=== PATIENT | female | born 1985 | race American Indian/Alaskan Native ===

== ENCOUNTER 2017-11-02 12:30 | Emergency (ER) | payer OTHER ==
--- NOTE | 2017-11-02 13:18 | OBHP ---
Datetime: 11/02/2017 13:12 IP Adm Impression: , intrauterine ; No Active Labor; Intact Membranes IP Admit Plan: Observation/Evaluation; Discharge home Admit Comment, IP Provider: The patient presents to labor and delivery at 35 weeks complaining of pe lvic pressure discomfort times several hours duration. Patient reports good movement no vaginal bleeding or leakage of fluid. care unremarkable Past medical history none Past surgical history none No known drug allergies Social history denies alcohol tobacco use Review of systems patient denies headache chest pain shortness of breath palpitations nausea vomit ing diarrhea heat or cold intolerance easy bruisability musculoskeletal or neurological complaints Vital signs stable afebrile Physical exam see notes Intrauterine at 35 weeks Observation, external monitor Pelvic Type - PN: Adequate Extremities - PN: Normal Abdomen - PN: Normal Back - PN: Normal Breast - PN: Not Done Lungs - PN: Normal Heart - PN: Normal Thyroid - PN: Normal Neurologic - PN: Normal HEENT - PN: Normal General - PN: Normal Presentation-Admit: Vertex FHR - Baseline A Provider: 145 Gestation - Est Wks by US: 35.0 Pool Provider: Negative Vital Signs Provider: Reviewed IP Chief Complaint: Maternal discomfort NICHD Variability Prov Fetus A: Moderate 6-25bpm NICHD Accel Fetus A IP Provider: 10X10 FHR Category Provider Fetus A: Category I NICHD Decel Fetus A IP Provider: None Dilatation, Provider: 0 Effacement, Provider: 0 Station, Provider: 0 Genitourinary Exam: Normal DTRs - PN: Normal
[2017-11-02 19:07] VITALS: BP 110/68; PULSE 89; O2SAT 100
== END 2017-11-02 15:06 | disposition home or self-care (01) ==
LOC: H.EROB2 12:30 → H.L&D 12:34 → H.EROB2 15:06
DX: O26.93 Pregnancy related conditions, unspecified, third trimester (principal); R10.2 Pelvic and perineal pain; Z3A.35 35 weeks gestation of pregnancy

== ENCOUNTER 2017-12-10 19:38 | Inpatient (IN) | payer OTHER ==
[2017-12-10] MEDS: Lactated Ringer's 1,000 ML IV SCH (20:35)
[2017-12-10 20:43] VITALS: BMI 35.6
--- NOTE | 2017-12-10 21:00 | OBADHP ---
Datetime: 12/10/2017 20:34 Admit Comment, IP Provider: 32 y/o G1 @ 40.4 wks w/ EDC 12/06/2017 based on LMP (03/01/2017) present ing for scheduled induction for oligohydramnios. She has not had an complications thus far, and state s she had a bloody show while in the office today with irregular contractions. She denied any loss of fluid. Denies fever, chills, chest pain, shortness of breath, dysuria or calf pain. Pt receives her PN care w/ Dr. Alonso. PMH: none Meds: None (not on PNV due to elevated iron levels as per patient) Allergies: mushrooms-hives Famhx: mother- DM, HTN; father- unknown Surghx: tonsillectomy Sochx: denies cigarettes, eToH or elicit drugs ROS: all other systems reviewed _ negative VS: 109/68 spo2-99% RR-16 Pulse -102bpm Gen: laying supine position, in no distress, breathing comfortably Cardio: s1s2 RRR, no mumurs Resp: cta b/l no wheeze Abd: Gravid, BS +, nontender Pelvic: 1cm, 20%, -3 (Nurse Yuki as airport location manager) Ext: nonedematous, calves nontender Neuro: A _ O x 3 A/P: 32 y/o G1PO @ 40.4 wks based on LMP (03/01/2017) presenting for scheduled induction for oligo hydramnios. 1. Admit to unit _ initiate induction protocol with cervidil. 2. Continue to monitor. 3. Cbc _ type/screen ordered. FU results. Patient seen and examined with MAKENZIE Temple JP, PGY-1 OB Hospitalist Addendum: Pt seen and examined by me. Agree w/ above. 32 yo G1 at 40+4 wks for in duction of labor for oligohydramnios. Will start induction w/ cervidil. FHT reactive. GBS negative. (ES) FHR - Baseline A Provider: 140 Membranes, Provider: Intact Gestation - Est Wks by US: 40.4 IP Hx Assessment: The History has been Reviewed and is Current Vital Signs Provider: Reviewed IP Chief Complaint: Uterine contractions; Scheduled induction of labor NICHD Variability Prov Fetus A: Moderate 6-25bpm NICHD Accel Fetus A IP Provider: 15X15 FHR Category Provider Fetus A: Category I NICHD Decel Fetus A IP Provider: None Dilatation, Provider: 1 Effacement, Provider: 0 Station, Provider: -3 EGA AdmitDate IP: 40.4 IP Admit Plan: Admit to unit; Initiate labor induction protocol Datetime: 11/02/2017 13:12 Pelvic Type - PN: Adequate Extremities - PN: Normal Abdomen - PN: Normal Back - PN: Normal Breast - PN: Not Done Lungs - PN: Normal Heart - PN: Normal Thyroid - PN: Normal Neurologic - PN: Normal HEENT - PN: Normal General - PN: Normal Presentation-Admit: Vertex Pool Provider: Negative Genitourinary Exam: Normal DTRs - PN: Normal IP Adm Impression: , intrauterine ; No Active Labor; Intact Membranes
[2017-12-10 21:31] LABS: BASO % 0.3 % (0.0-2.0); EOS # 0.1 K/uL (0.0-0.7); EOS % 0.9 % (0.0-4.0); HEMOGLOBIN 10.6 g/dL (12.0-16.0); LYMPH # 1.7 K/uL (1.0-4.3); LYMPH % 11.1 % (20.0-40.0); MEAN CELL VOLUME 80.1 fl (81.0-99.0); MEAN CORPUSCULAR HEMOGLOBIN 25.7 pg (27.0-31.0); MONO # 1.2 K/uL (0.0-0.8); MONO % 7.4 % (0.0-10.0); NEUT # 12.5 K/uL (1.8-7.0); NEUT % 80.3 % (50.0-75.0); RBC 4.13 Mil/uL (3.80-5.20); RED CELL DISTRIBUTION WIDTH 16.7 % (11.5-14.5); WHITE BLOOD COUNT 15.6 K/uL (4.8-10.8)
[2017-12-11] MEDS: Lactated Ringer's 1,000 ML IV SCH ×3 (07:20→18:30)
[2017-12-11] MEDS ORDERED: OXYTOCIN/0.9 % NS 20 UNIT/1,000 ML BAG IV ONE ×2 (12:21→21:12)
[2017-12-11] MEDS ORDERED: Oxytocin 30 UNIT 30 UNITS/500 ML BAG IV ONE ×2 (12:22→21:12)
[2017-12-11] MEDS ORDERED: Fentanyl/Bupivacaine HCl 250 ML EPI ONE (17:28)
--- NOTE | 2017-12-11 18:31 | OBPN ---
Datetime: 12/11/2017 12:10 IP Progress Note Comment: OB Hospitalist on-call. Sign out rec'd 11:30am. Melinda was admitited for IOL started on cervidil. With FHR tracing showi ng occ decels (baseline 140 - 150's). SVE 1cm she had balloon placed in cervix - placed on tension. ..will motnior progress/cervical ripening Addenedum : +LYV + Accels Datetime: 12/11/2017 12:00 IP Progress Plan: Continue present management; Cervical Ripening Contraction Comments Provider: Sporadic FHR - Baseline A Provider: 150 Gestation - Est Wks by US: 40.5 Vital Signs Provider: Reviewed; Within Normal Limits FHR Category Provider Fetus A: Category II NICHD Variability Prov Fetus A: Minimal - Undetectable to <5bpm Dilatation, Provider: 1 Effacement, Provider: 30 Station, Provider: -3 NICHD Decel Fetus A IP Provider: Late; Variable Datetime: 12/10/2017 20:34 Membranes, Provider: Intact NICHD Accel Fetus A IP Provider: 15X15 Datetime: 11/02/2017 13:12 Pool Provider: Negative Presentation-Admit: Vertex
[2017-12-11] MEDS ORDERED: Lactated Ringer's 1,000 ML IV SCH (19:00)
--- NOTE | 2017-12-11 19:01 | OBPN ---
Datetime: 12/11/2017 18:45 IP Progress Impression: Normal progression of labor; Reassuring heart rate IP Procedures: Artificial ROM IP Progress Plan: Continue present management Pool Provider: Negative Membranes, Provider: Ruptured Contraction Comments Provider: 2-3m FHR - Baseline A Provider: 150 Presentation-Admit: Vertex IP Progress Note Comment: Earlier, she rec'd epidural for pain. She had balloon placed SVE balloon in vagina/with bloody show noted - SVE 3-4/50/-2 AROM attempted - scant fluid noted A: Latent phase of labor PLAN: monitor FH and labor progress - balloon removed. NICHD Accel Fetus A IP Provider: 10X10 FHR Category Provider Fetus A: Category II NICHD Variability Prov Fetus A: Minimal - Undetectable to <5bpm Dilatation, Provider: 3-4 Effacement, Provider: 50 Station, Provider: -2 NICHD Decel Fetus A IP Provider: None
[2017-12-11] MEDS ORDERED: ceFAZolin 2 GM in Sodium Chloride 0.9% 100 ML IVPB ONE (19:19)
[2017-12-11] MEDS ORDERED: ceFAZolin IV 1 gm in Dextrose 2 GM/100 ML BAG IVPB ONE (19:19)
--- NOTE | 2017-12-11 19:21 | OBPN ---
Datetime: 12/11/2017 19:10 IP Progress Impression Other: decelerations rmote from delivery IP Informed Consent Obtain: Section Delivery; Risks, Benefits and Alternatives Discussed IP Progress Plan: Deliver- Section IP Progress Note Comment: Notiified decels/decreased LTV after AROM .... A: decelerations remote from delivery. PLAN: Condition/procedure explained to pt . she and her p artner understood. Prep for C/S ...informed consent obtained Datetime: 12/11/2017 16:30 IP Procedures: Sterile Vag Exam Contraction Comments Provider: Q3-5 minutes FHR - Baseline A Provider: 140 Gestation - Est Wks by US: 40.5 Vital Signs Provider: Reviewed; Within Normal Limits FHR Category Provider Fetus A: Category II NICHD Variability Prov Fetus A: Minimal - Undetectable to <5bpm Dilatation, Provider: 3 Effacement, Provider: 40 Station, Provider: -3
[2017-12-11] MEDS ORDERED: EPINEPHrine 1 mg/ml (1:1000) Inj ONE (19:42)
[2017-12-11] MEDS ORDERED: Lidocaine 2% PF (10 ml) Amp ONE (19:42)
[2017-12-11] MEDS: ceFAZolin IV 1 gm in Dextrose 2 GM/100 ML BAG IVPB ONE ×2 (19:50→20:00)
[2017-12-11] MEDS ORDERED: Morphine 1 mg/ml preservative-free Inj(Duramorph) ONE (20:05)
[2017-12-11] MEDS ORDERED: DiphenhydrAMINE 50 mg/ml Inj ONE (20:52)
[2017-12-11] MEDS ORDERED: Oxycodone/Acetaminophen 5/325 mg Tab PO PRN (21:12)
[2017-12-11] MEDS ORDERED: DiphenhydrAMINE 50 mg/ml Inj IVP PRN (21:30)
[2017-12-12] MEDS ORDERED: DiphenhydrAMINE 50 mg/ml Inj IVP PRN (00:30)
[2017-12-12] MEDS ORDERED: Lactated Ringer's 1,000 ML IV SCH (05:15)
[2017-12-12 06:34] LABS: HEMOGLOBIN 9.7 g/dL (12.0-16.0); MEAN CELL VOLUME 82.3 fl (81.0-99.0); MEAN CORPUSCULAR HEMOGLOBIN 26.1 pg (27.0-31.0); MEAN CORPUSCULAR HGB CONC 31.8 g/dL (33.0-37.0); RBC 3.71 Mil/uL (3.80-5.20); WHITE BLOOD COUNT 20.9 K/uL (4.8-10.8)
--- NOTE | 2017-12-12 08:07 | OBDS ---
DELIVERY PERSONNEL Delivery Doctor: Suni Helm DO Assembly Line Machine Operator: Alea Yip RN Anesthesiologist: Mahesh Garcia MD Resident: Ed Forrester MATERNAL INFORMATION Delivery Anesthesia: Epidural Medications in Delivery: Pitocin Estimated Blood Loss (ml): 800 Placenta Cultured: No Maternal Complications: None Provider Comments: Pre op Dx deceleratoins remote from delivery Post op Dx same Procedure: Primary LTCS via Pfannensteil incision Surgeon Dr Alicja De La Cruz Assron Forrester Anesth: Dr Garcia Anesth: epidural Findings: live infant female delivered from presentation/asynclitic/loose cord around neck/ No AF - 9,9 -Placenta delivered intact manually -ovaries and tubes WNL/ small fibroid posterior wall -she remained stable -all equipment sponges accounted for -EBL 800cc LABOR SUMMARY EDC: 12/06/2017 00:00 No. Babies in Womb: 1 Attempted: No Labor Anesthesia: Epidural LABOR INFORMATION Reason for Induction: Oligohydramnios Onset of Labor: 12/11/2017 17:30 Cervical Ripening Agents: Cervidil; Maurice Balloon Oxytocin: N/A Group B Beta Strep: Negative Antibiotics # of Doses: none Antibiotics Time of Last Dose: n/a Steroids Given: None Reason Steroids Not Administered: Not Applicable MEMBRANES Membranes Rupture Method: Artificial Rupture of Membranes: 12/11/2017 18:45 Length of Rupture (hrs): 1.60 Amniotic Fluid Color: Bloody Amniotic Fluid Amount: Scant Amniotic Fluid Odor: None STAGES OF LABOR Stage 3 hrs: 0 Stage 3 min: 0 Total Time in Labor hrs: 2 Total Time in Labor min: 51 CSECTION DELIVERY Primary Indication: Other Other Primary Indication: decelerations remote from delivery CSection Urgency: Non Elective CSection Incidence: Primary Labor: Labor Elective: Nonelective CSection Incision: Lower Uterine Transverse Uterine Closure: Double-layer closure (Annotations: Data stored by N on behalf of user) BABY A INFORMATION Infant Delivery Date/Time: 12/11/2017 20:21 Method of Delivery: Born in Route : No : N/A Forceps: N/A Vacuum Extraction: N/A Shoulder Dystocia : No SHOULDER DYSTOCIA BABY A Infant Delivery Date/Time: 12/11/2017 20:21 PRESENTATION/POSITION BABY A Presentation: Cephalic Cephalic Presentation: Vertex PLACENTA INFORMATION BABY A Placenta Delivery Time : 12/11/2017 20:21 Placenta Method of Delivery: Expressed Placenta Status: Delivered SCORES BABY A Heart Rate 1 min: >100 bpm Resp Effort 1 min: Good Cry Reflex Irritability 1 min: Cough or Sneeze or Pulls Away Muscle Tone 1 min: Active Motion Color 1 min: Body [place], Extremities Blue Resuscitation Effort 1 min: Tactile Stimulation SCORE 1 MIN: 9 Heart Rate 5 min: >100 bpm Resp Effort 5 min: Good Cry Reflex Irritability 5 min: Cough or Sneeze or Pulls Away Muscle Tone 5 min: Active Motion Color 5 min: Body [place], Extremities Blue Resuscitation Effort 5 min: N/A SCORE 5 MIN: 9 INFANT INFORMATION BABY A Gestational Age at Delivery: 40.5 Gestational Status: Term Outcome : Liveborn Infant Condition : Stable Sex: Female IDENTIFICATION/MEDS BABY A ID Band Number: [id number] ID Band Location: Left Leg; Left Arm WEIGHT/LENGTH BABY A Infant Birthweight (gms): 2900 Weight (lb): 6 Infant Weight (oz): 6 CORD INFORMATION BABY A No. Cord Vessels: 3 Nuchal Cord : Around Neck x1, Loose Infant Cord pH Baby Arterial: 7.18 Cord Blood Taken: Yes Infant Suction: Mouth; Nose; Pharynx ASSESSMENT BABY A Infant Complications: Multiple Late Decels; Oligohydramnios Physical Findings at Delivery: Molding of the Head Infant Respirations: Appears Normal Upfitter/ALS Called : No Infant Care By: Dr Collado/Hai Transferred To: Remains with Mother
[2017-12-12] MEDS ORDERED: Multivitamin With Minerals Tab PO SCH (09:00)
[2017-12-12] MEDS: Multivitamin With Minerals Tab PO SCH (09:03)
[2017-12-12] MEDS: Oxycodone/Acetaminophen 5/325 mg Tab PO PRN ×2 (09:15→15:00)
--- NOTE | 2017-12-12 18:51 | OBPPN ---
Datetime: 12/12/2017 18:47 PP Pain Prov: Within normal limits PP Nausea Prov: Denies PP Flatus Prov: Yes PP Breasts Prov: Not Done PP Heart Prov: Normal PP Lungs Prov: Normal PP Abdomen/Uterus Prov: Normal PP Lochia Prov: Not Done PP Vulva/Perineum Prov: Not Done PP CVA Tenderness Prov: Normal PP Extremities Prov: Normal PP C/S Incision Prov: Normal PP Impression Prov: Normal progression PP Plan Prov: Continue present management PP Progress Note Prov: Patient doing well tolerating diet pain well-controlled ambulating and voidin g without difficulty Vital signs stable afebrile Uterus firm below the umbilicus Incision clean dry and intact Extremities no Homans day #1 Ambulate, regular diet, analgesias needed CBC within normal limits Vital Signs Provider PP: Reviewed
--- NOTE | 2017-12-13 08:24 | OP ---
PROCEDURE DATE: 12/11/2017 PREOPERATIVE DIAGNOSIS: Decelerations remote from delivery and early labor. POSTOPERATIVE DIAGNOSIS: Decelerations remote from delivery and early labor. PROCEDURE: Primary low transverse section via Pfannenstiel incision. SURGEON: Phani Helm DO SERVICE LOSS CONTROL CONSULTANT: Km De La Cruz MD ANESTHESIOLOGIST: Odell Garcia MD ANESTHESIA: Epidural. OPERATIVE FINDINGS: Live female infant, delivered from the cephalic presentation, noted to be asynclitic. Loose nuchal cord around the neck. No amniotic fluid noted. scores were 9 and 9 given 1 and 5 minutes respectively. Placenta was delivered and intact manually. Ovaries and tubes appeared to be within normal limits grossly. A small fibroid noted in the posterior wall. She remained hemodynamically stable throughout the procedure. All equipments, sponges and needles accounted for. ESTIMATED BLOOD LOSS: 800 mL. DESCRIPTION OF PROCEDURE: The patient was brought to the operating room. She already had an epidural catheter in place. She also had a Maurice catheter in place. Compression boots were placed on both lower extremities. She was placed in supine position. heart rate was noted to be 160s prior to draping. She was draped and prepped in the usual sterile manner. Once adequate anesthesia was obtained, a Pfannenstiel incision was made using a scalpel. This incision was then taken down to the underlying fascia using a second scalpel. The fascia was nicked in the midline and extended bilaterally using Churhc scissors. The inferior aspect of the fascia was grasped using two Raj clamps, tented up, and the rectus muscle was both bluntly and sharply dissected using electrocautery. Same was done with superior aspect of the fascia. In the midline superiorly, the rectus muscle was bluntly. Peritoneum was identified, tented up using two Ninoska clamps and incised using Metzenbaum scissors with direct visualization of bladder and intestines. The incision was then extended superiorly and inferiorly. Thereafter, bladder blade was inserted. Bladder flap was created by incising peritoneum on the uterus using Metzenbaum scissors and then extending it bilaterally. Afterwards, bladder blade was then inserted behind the bladder flap. A low transverse incision was made using a scalpel. Upon entering the uterus, no amniotic fluid was noted. This incision was then extended bilaterally using bandage scissors. The 's head was delivered as atraumatically as possible. One loose nuchal cord was noted. This was reduced successfully. Remainder of the infant was then delivered as traumatically as possible. Infant was bulb suctioned nasopharyngeally and the was crying spontaneously. Cord was clamped and cut, and the infant was handed to senior licensing manager in attendance. Cord blood and cord pH were obtained. Placenta was then delivered intact manually. The uterus was then exteriorized, cleared of debris and clots. Good contracture of the uterus was noted. A 0 Vicryl suture was used to close the first layer of the uterus in interlocking fashion. Second layer of the uterus was closed using 0 Vicryl suture imbricating the first layer, good hemostasis being assured. Posterior cul-de-sac was noted to be cleared of debris and clots. Irrigation was performed. Uterus was then placed back into the peritoneal cavity. Incision line was reinspected down the lower uterine aspect and noted to have good hemostasis. All equipments were removed and accounted for. A 0 Vicryl suture was used to approximate the peritoneum in a running fashion. The rectus muscle was noted to have good hemostasis. A 0 Vicryl suture was used to approximate the rectus muscle x3. A 0 Vicryl suture was used to approximate the fascial layer in a running fashion. Hemostasis was assured using electrocautery in the subcuticular layer. A 2-0 plain suture was used to approximate the subcuticular layer x3, 3-0 Vicryl suture was used to approximate the skin. Dermabond, Steri-Strips and pressure bandage were applied. She tolerated the procedure well and was transferred to the recovery room in stable condition, remained hemodynamically stable. Phani Helm DO
[2017-12-13] MEDS: Multivitamin With Minerals Tab PO SCH (08:32)
--- NOTE | 2017-12-13 22:20 | OBPPN ---
Datetime: 12/13/2017 10:16 PP Pain Prov: Within normal limits PP Nausea Prov: Denies PP Flatus Prov: Yes PP BM Prov: Yes PP Breasts Prov: Normal PP Heart Prov: Normal PP Lungs Prov: Normal PP Abdomen/Uterus Prov: Normal PP Lochia Prov: Normal PP Vulva/Perineum Prov: Normal PP CVA Tenderness Prov: Normal PP Extremities Prov: Normal PP C/S Incision Prov: Normal PP Progress Prov: Normal PP Comments Phys Exam Prov: Abdomen soft, nontender, nondistended Uterus firm, below umbilicus Incision clean, dry, intact No deep calf tenderness bilaterally PP Impression Prov: Normal progression PP Plan Prov: Continue present management PP Progress Note Prov: Postoperative day #2 status post , patient recovering well Regular diet Patient out of bed and ambulating Pain control Anticipate discharge home tomorrow IP PP Procedures: None Vital Signs Provider PP: Reviewed; Within Normal Limits
[2017-12-14] MEDS: Oxycodone/Acetaminophen 5/325 mg Tab PO PRN (05:15)
[2017-12-14] MEDS: Multivitamin With Minerals Tab PO SCH (08:05)
[2017-12-14] MEDS ORDERED: Simethicone 80 mg Chewtab PO PRN (13:41)
[2017-12-14 23:28] VITALS: BP 121/70; PULSE 112; RESP 20; TEMP 98.1; O2SAT 98
[2017-12-15] MEDS ORDERED: Prenatal Multivit/Folic Acid/Iron Tab PO SCH (09:00)
--- NOTE | 2017-12-15 09:43 | OBPPN ---
Datetime: 12/14/2017 09:38 PP Pain Prov: Within normal limits PP Nausea Prov: Denies PP Flatus Prov: Yes PP Breasts Prov: Normal PP Heart Prov: Normal PP Lungs Prov: Normal PP Abdomen/Uterus Prov: Normal PP Lochia Prov: Normal PP Vulva/Perineum Prov: Normal PP CVA Tenderness Prov: Normal PP Extremities Prov: Normal PP Comments Phys Exam Prov: Abd: Soft, NT, BS- present UT- Firm Incision: Clean and dry PP Impression Prov: Normal progression PP Plan Prov: Discharge PP Progress Note Prov: S/P delivery, POD #3 Clinically stable. Plan: Dischsrge Home
--- NOTE | 2017-12-15 09:45 | OBDCSUM ---
Datetime: 12/14/2017 17:56 Discharged to, Provider: Home Follow up at, Provider: OB Practitioner Disch Instr Activity: Normal activity Disch Instr Diet: Regular Discharge Instructions, Provider: Routine instructions given Discharge Diagnosis, Provider: Term Delivered Discharge Time: 12/14/2017 17:56 Follow up in weeks, Provider: 4-6 weeks Disch Referrals: None Contraception discussed, Prov: Yes Discharge Comment, Provider: S/P Uncomplicated Delivery, Clinically Stable Discharge Diagnosis Prov Other: S/P Uncomplicated Delivery, Clinically Stable
== END 2017-12-14 19:05 | disposition home or self-care (01) | DRG 788 ==
LOC: H.EROB2 19:38 → H.L&D 20:30 → H.OB/GYN 12-12 00:05
PROVIDERS: ADMIT Obstetrics & Gynecology Gynecology; ATTEND Obstetrics & Gynecology Gynecology
PROC: 4A1HXCZ Monitoring of Products of Conception, Cardiac Rate, External Approach (ICD-10-PCS; 2017-12-10)
PROC: 10D00Z1 Extraction of Products of Conception, Low, Open Approach (ICD-10-PCS; principal; 2017-12-11)
DX: O76 Abnormality in fetal heart rate and rhythm complicating labor and delivery (principal); O69.81X0 Labor and delivery complicated by cord around neck, without compression, not applicable or unspecified; O41.00X0 Oligohydramnios, unspecified trimester, not applicable or unspecified; Z3A.40 40 weeks gestation of pregnancy; Z37.0 Single live birth